=== PATIENT | female | born 2000 | race African-American/Black ===

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

== ENCOUNTER 2019-04-26 15:23 | Emergency (ER) | payer SELFPAY | END 2019-04-26 15:55 | disposition left against medical advice (07) | LOC: D.ER 15:23 | DX: M54.9 Dorsalgia, unspecified (principal) ==

== ENCOUNTER 2020-01-08 23:59 | Emergency (ER) | payer SELFPAY ==
[~2020-01-08] VITALS: Ht 157.5 cm; Wt 61.4 kg
[2020-01-09 00:06] VITALS: Ht 157.5 cm; Wt 61.4 kg
[2020-01-09 00:33] LABS: BASOPHILS 0.2 % (0-2); EOSINOPHILS 0 % (0-7); HEMATOCRIT 38.3 % (36.0-48.0); HEMOGLOBIN 12.9 g/dL (12-16); LYMPHOCYTES 15.8 % (15-50); MCH 29.9 pg (26.0-34.0); MCHC 33.7 g/dL (31.0-37.0); MCV 88.7 fL (80.0-100.0); MEAN PLATELET VOLUME 8.9 fL (7.4-10.4); MONOCYTES 3.3 % (2-11); NEUTROPHILS 80.7 % (40-80); PLATELET COUNT 284 10x3/uL (130-400); RBC 4.32 10x6/uL (4.00-5.40); RDW 11.8 % (11.5-14.5); WBC 4.6 10x3/uL (4.8-10.8)
[2020-01-09 00:37] LABS: CALC OSMOLALITY 290 mosm/kg (275-300); CALCIUM 8.6 mg/dL (8.5-10.1); CARBON DIOXIDE 25.8 mmol/L (21.0-32.0); CHLORIDE - SERUM 110 mmol/L (98-107); CREATININE - SERUM 0.8 mg/dL (0.6-1.3); GLUCOSE 111 mg/dL (74-106); POTASSIUM - SERUM 4.2 mmol/L (3.5-5.1); SODIUM 146 mmol/L (136-145); UREA NITROGEN 11 mg/dL (7-18); eGFR NON AFRICAN AMERICAN > 90 mL/min (90-120)
[2020-01-09 00:38] LABS: HCG SERUM NEGATIVE (NEGATIVE)
[2020-01-09 00:44] LABS: ALBUMIN 3.7 g/dL (3.4-5.0); ALKALINE PHOSPHATASE 38 U/L (30-120); ALT (SGPT) 22 U/L (10-68); BILIRUBIN - TOTAL 0.67 mg/dL (0.2-1.3); LIPASE 126 U/L (73-393); PROTEIN - SERUM 7.6 g/dL (6.4-8.2)
[2020-01-09 01:22] LABS: BILIRUBIN NEGATIVE (NEGATIVE); GLUCOSE NEGATIVE (NEGATIVE); KETONE SMALL mg/dL (NEGATIVE); NITRITE NEGATIVE (NEGATIVE); UROBILINOGEN NORMAL (NORMAL)
[2020-01-09] MEDS ORDERED: ZOFRAN8 MG PO (01:27)
[2020-01-09 02:10] VITALS: BP 122/78
== END 2020-01-09 02:10 | disposition home or self-care (01) ==
LOC: D.ER 23:59
PROVIDERS: Family Medicine
DX: K29.70 Gastritis, unspecified, without bleeding (principal); R11.10 Vomiting, unspecified

== ENCOUNTER 2020-06-04 08:03 | Emergency (ER) | payer MEDICAID ==
[~2020-06-04 08:03] MED LIST: ZOFRAN8 MG PO
[2020-06-04 08:09] VITALS: Ht 157.5 cm
[2020-06-04 08:20] LABS: BASOPHILS 0.2 % (0-2); EOSINOPHILS 0.8 % (0-7); HEMATOCRIT 40.6 % (36.0-48.0); HEMOGLOBIN 13.7 g/dL (12-16); IMMATURE GRANULOCYTES 0.4 % (0-5); LYMPHOCYTES 25.8 % (15-50); MCH 30.8 pg (26.0-34.0); MCHC 33.7 g/dL (31.0-37.0); MCV 91.2 fL (80.0-100.0); MEAN PLATELET VOLUME 9.1 fL (7.4-10.4); MONOCYTES 9.2 % (2-11); NEUTROPHILS 63.6 % (40-80); PLATELET COUNT 289 10x3/uL (130-400); RBC 4.45 10x6/uL (4.00-5.40); RDW 12.6 % (11.5-14.5); WBC 5.2 10x3/uL (4.8-10.8)
[2020-06-04 08:32] LABS: CALC OSMOLALITY 279 mosm/kg (275-300); CARBON DIOXIDE 21.8 mmol/L (21.0-32.0); CHLORIDE - SERUM 107 mmol/L (98-107); CREATININE - SERUM 0.8 mg/dL (0.6-1.3); GLUCOSE 85 mg/dL (74-106); POTASSIUM - SERUM 4.4 mmol/L (3.5-5.1); SODIUM 141 mmol/L (136-145); UREA NITROGEN 12 mg/dL (7-18); eGFR NON AFRICAN AMERICAN > 90 mL/min (90-120)
[2020-06-04 08:38] LABS: ALBUMIN 4.1 g/dL (3.4-5.0); ALKALINE PHOSPHATASE 50 U/L (30-120); ALT (SGPT) 23 U/L (10-68); AMYLASE - SERUM 112 U/L (25-115); BILIRUBIN - TOTAL 0.65 mg/dL (0.2-1.3); LIPASE 169 U/L (73-393); MAGNESIUM - SERUM 2.3 mg/dL (1.8-2.4); PROTEIN - SERUM 7.9 g/dL (6.4-8.2)
[2020-06-04 08:45] LABS: HCG SERUM NEGATIVE (NEGATIVE)
[2020-06-04 09:11] LABS: BILIRUBIN NEGATIVE (NEGATIVE); GLUCOSE NEGATIVE (NEGATIVE); KETONE NEGATIVE (NEGATIVE); NITRITE NEGATIVE (NEGATIVE); UROBILINOGEN NORMAL (NORMAL)
[2020-06-04 09:13] LABS: BACTERIA FEW /hpf (NEGATIVE); EPITHELIAL CELLS 0-5 /hpf (0-5); RED CELLS - URINE 25-50 /hpf (0-5); WHITE CELLS - URINE 0-5 /hpf (NEGATIVE)
[2020-06-04 09:19] LABS: UDS - AMPHET NEGATIVE QUAL (NEGATIVE); UDS - BARB NEGATIVE QUAL (NEGATIVE); UDS - BENZO NEGATIVE QUAL (NEGATIVE); UDS - COCAINE NEGATIVE QUAL (NEGATIVE); UDS - OPIATE NEGATIVE QUAL (NEGATIVE); UDS - PCP NEGATIVE QUAL (NEGATIVE); UDS - THC POSITIVE QUAL (NEGATIVE)
[2020-06-04] MEDS ORDERED: PROTONIX40 MG PO (09:56)
[2020-06-04] MEDS ORDERED: ZOFRAN4 MG PO (09:57)
[2020-06-04 10:12] VITALS: BP 96/73
== END 2020-06-04 10:12 | disposition home or self-care (01) ==
LOC: D.ER 08:03
PROVIDERS: Family Medicine
DX: K29.70 Gastritis, unspecified, without bleeding (principal)